=== PATIENT | female | born 1965 ===

== ENCOUNTER → 2018-10-04 | Outpatient (CLI) | payer OTHER ==
--- NOTE | 2018-10-05 15:07 | US ---
EXAMINATION TYPE: US pelvic complete DATE OF EXAM: 10/04/2018 COMPARISON: NONE CLINICAL HISTORY: D25.9 Lelomyoma of uterus, unspecified. Heavy periods x 6 years, 4, para 4, patient on control, history of fibroids, history of D&C. TECHNIQUE: . Transabdominal sonographic images of the pelvis were acquired. Date of LMP: 06/20/2019 EXAM MEASUREMENTS: Uterus: 11.3 x 7.4 x 9.5 cm Endometrial Stripe: 0.5 cm Right Ovary: 2.8 x 1.6 x 1.9 cm Left Ovary: 2.4 x 1.3 x 1.8 cm 1. Uterus: anteverted, enlarged, bulky with multiple fibroids largest measures 4.1 x 2.9 x 4.0cm 2. Endometrium: visualized portions wnl, limited by fibroid uterus 3. Right Ovary: wnl 4. Left Ovary: wnl 5. Bilateral Adnexa: wnl 6. Posterior cul-de-sac: wnl IMPRESSION: 1. Uterine fibroids.
== END | disposition home or self-care (01) ==
LOC: RADUSWWP 15:59
PROVIDERS: ATTEND Family Medicine
DX: D25.9 Leiomyoma of uterus, unspecified (principal)
CPT/HCPCS: 76856